=== PATIENT | male | born 1990 | race African-American/Black ===

== ENCOUNTER 2017-06-01 08:12 | Emergency (ER) | payer OTHER ==
--- NOTE | 2017-06-01 08:20 | PDOC ---
History of Present Illness - General Chief Complaint: Pain Stated Complaint: N/V/DIZZINESS/LOWER ABDOMINAL PAIN Time Seen by Provider: 06/01/17 08:19 - History of Present Illness Initial Comments: 06/01/17 12:35 27-year-old male with no significant past medical history presents the emergency department with 3 days of nausea, lightheadedness, and 2 episodes of hematemsis this morning. Pt reports the nausea and lightheadness felt like he was "getting sick." This morning he reports having 2 episodes of maroon blood mixed with saliva in the amount of <1 shot glass with each episode. He has had no further episodes since. Had a normal bowel movement this morning with brown stool. Denies any fevers or chills. Denies any recent alcohol intake. Denies NSAID use. Last smoked marijuana 2 days ago but denies any other drug use. Reports his appetite is down but he has been drinking plenty of water. Denies any weakness or numbness. Reports left upper quadrant, epigastric and right upper quadrant abdominal pain. Denies any recent travel. Has not taken any medications. Denies eating any red food or drinking any red liquids. Reports a similar episode of "vomiting blood "15 years ago that he did not seek care for. Past History - Past Medical History Allergies/Adverse Reactions: Allergies Allergy/AdvReac Type Severity Reaction Status Date / Time No Known Allergies Allergy Verified 06/01/17 08:14 Home Medications: Ambulatory Orders Pantoprazole Sodium [Protonix -] 40 mg PO DAILY #30 tablet.ec 06/01/17 COPD: No Other medical history: pt denies - Suicide/Smoking/Psychosocial Hx Smoking History: Current every day smoker Number of Cigarettes Smoked Daily: 6 Information on smoking cessation initiated: No 'Breaking Loose' booklet given: 01/11/16 Hx Alcohol Use: No Drug/Substance Use Hx: No Substance Use Type: None Review of Systems - Review of Systems Comments:: 06/01/17 12:43 GENERAL/CONSTITUTIONAL: No fever or chills. No weakness. HEAD, EYES, EARS, NOSE AND THROAT: No change in vision. No ear pain or discharge. No sore throat. GASTROINTESTINAL: +nausea, vomiting, no diarrhea or constipation. GENITOURINARY: No dysuria, frequency, or change in urination. CARDIOVASCULAR: No chest pain or shortness of breath. RESPIRATORY: No cough, wheezing, or hemoptysis. MUSCULOSKELETAL: No joint or muscle swelling or pain. No neck or back pain. SKIN: No rash NEUROLOGIC: +lightheadedness. No headache, vertigo, loss of consciousness, or change in strength/sensation. ENDOCRINE: No increased thirst. No abnormal weight change. HEMATOLOGIC/LYMPHATIC: No anemia, easy bleeding, or history of blood clots. ALLERGIC/IMMUNOLOGIC: No hives or skin allergy. *Physical Exam - Physical Exam Comments: 06/01/17 12:44 GENERAL: Awake, alert, and fully oriented, in no acute distress HEAD: No signs of trauma EYES: PERRLA, EOMI, sclera anicteric, conjunctiva clear ENT: Auricles normal inspection, hearing grossly normal, nares patent, oropharynx clear without exudates. dry MM NECK: Normal ROM, supple, no lymphadenopathy, JVD, or masses LUNGS: Breath sounds equal, clear to auscultation bilaterally. No wheezes, and no crackles HEART: Regular rate and rhythm, normal S1 and S2, no murmurs, rubs or gallops ABDOMEN: Soft, +epigastric and LUQ ttp, otherwise nontender, negative palmer sign. normoactive bowel sounds. No guarding, no rebound. No masses. No CVAT. EXTREMITIES: Normal range of motion, no edema. No clubbing or cyanosis. No cords, erythema, or tenderness NEUROLOGICAL: Normal speech, cranial nerves intact, negative pronator drift, 5/ 5 strength in all 4 extremities, normal sensation to light touch in all 4 extremities, normal cerebellar exam, normal gait, normal reflexes and tone SKIN: Warm, Dry, normal turgor, no rashes or lesions noted. ED Treatment Course - LABORATORY CBC & Chemistry Diagram: 06/01/17 12:50 06/01/17 08:55 Medical Decision Making - Medical Decision Making 06/01/17 09:05 27-year-old male presents emergency Department with 3 days of lightheadedness, nausea and today 2 episodes of hematemesis. Denies coughing prior to episode, reports feeling nauseous. Vitals within normal limits. Exam with epigastric and left upper quadrant tenderness to palpation. Unclear etiology of the hematemesis however on subsequent questioning of the patient he states it was probably a lot less than a shot glass. Denies coffee grounds. We will obtain blood work, urinalysis, CT scan, and likely repeat CBC for evaluation. We'll also discuss case with Dr. Plummer (GI). 06/01/17 12:48 Blood work within normal limits. Urinalysis with some blood but no evidence of infection. CT scan with no acute findings. Patient feels better with fluids and requests discharge home. I discussed with patient that we recommend repeating the CBC to make sure he has not lost a lot of blood - pt agrees to stay for this. Regardless of our workup, given the severity of hematemesis and the possibility of a continued GI bleed, I offered admission to the patient for observation but he adamantly refuses and wants to go home and rest. I discussed the case with Dr. Plummer who recommended that if the patient does not want to stay in the hospital that he will reach out to the patient to schedule endoscopy either tomorrow or on Monday. Plan discussed with patient who agrees to f/u. 06/01/17 13:49 CBC completely stable. Vitals stable, pt feels better, no longer lightheaded. REquests DC home. Discussed return precautions with patient such as recurrent bloody vomit, he expresses understanding. I discussed the physical exam findings, ancillary test results and final diagnoses with the patient. I answered all of the patient's questions. The patient was satisfied with the care received and felt comfortable with the discharge plan and treatment plan. The patient will call their primary care physician within 24 hours to arrange follow-up and will return to the Emergency Department with any new, persistent or worsening symptoms. *DC/Admit/Observation/Transfer Diagnosis at time of Disposition: Hematemesis/vomiting blood - Discharge Dispostion Disposition: HOME Condition at time of disposition: Stable Admit: No - Prescriptions Prescriptions: Pantoprazole Sodium [Protonix -] 40 mg PO DAILY #30 tablet.ec - Referrals Referrals: Robbie Plummer MD [Staff Physician] - - Patient Instructions Printed Discharge Instructions: DI for Vomiting -- Adult Additional Instructions: As discussed, Dr. Plummer will contact you with regards to endoscopy scheduling for evaluation of your symptoms. If you not hear from Dr. Plummer, please call his office and schedule a follow-up appointment within one to 2 days. Take the pantoprazole as prescribed daily. Return to the emergency department if you have any new, worsening or concerning symptoms, especially if you have another episode of bloody vomiting. - Post Discharge Activity Forms/Work/School Notes: Back to Work - Attestations Physician Attestion: 06/01/17 13:50 I, Dr. Rosalva Yuen MD, attest that this document has been prepared under my direction and personally reviewed by me in its entirety. I further attest, that it accurately reflects all work, treatment, procedures and medical decision -making performed by me.
[2017-06-01 08:21] VITALS: TEMP 98.5; BMI 36.3
[2017-06-01] MEDS ORDERED: ONDANSETRON 4 MG/2 ML VIAL IVPUSH ONE (08:47)
[2017-06-01] MEDS ORDERED: PANTOPRAZOLE SODIUM 40 MG VIAL IVPUSH ONE (08:47)
[2017-06-01] MEDS ORDERED: SODIUM CHLORIDE 1,000 ML IV STA (08:47)
[2017-06-01] MEDS ORDERED: ONDANSETRON 4 MG/2 ML VIAL ONE (08:50)
[2017-06-01] MEDS ORDERED: PANTOPRAZOLE SODIUM 40 MG VIAL ONE (08:50)
[2017-06-01 09:24] LABS: BASO % 0.6 % (0-2.0); EOS % 5.2 % (0-4.5); HEMATOCRIT 42.2 % (35.4-49); HEMOGLOBIN 14.2 GM/dl (11.7-16.9); MCH 30.8 pg (25.7-33.7); MCHC 33.7 g/dl (32.0-35.9); MEAN CELL VOLUME 91.6 fl (80-96); MEAN PLT VOLUME 9.6 fl (7.5-11.1); MONO % 6.7 % (3.8-10.2); NEUT % 57.5 % (42.8-82.8); PLATELET COUNT 223 K/MM3 (134-434); RDW 13.2 % (11.9-15.9); WHITE BLOOD COUNT 6.6 K/mm3 (4.0-10.8)
[2017-06-01 09:41] LABS: ALBUMIN 3.9 g/dl (3.5-5.0); ALK PHOS 48 U/L (32-92); ANION GAP 5 (8-16); BILIRUBIN,TOTAL 0.5 mg/dl (0.2-1.0); BLOOD UREA NITROGEN 12 mg/dl (7-18); CALCIUM 8.8 mg/dl (8.4-10.2); CHLORIDE 105 mmol/L (98-107); CO2 25 mmol/L (22-28); CREATININE 0.8 mg/dl (0.6-1.3); GLUCOSE,RANDOM 93 mg/dl (74-106); MAGNESIUM 1.8 mg/dL (1.8-2.4); POTASSIUM 4.3 mmol/L (3.5-5.1); SGOT/AST 15 U/L (10-42); SGPT/ALT 17 U/L (10-40); SODIUM 135 mmol/L (136-145); TOT PROT 6.3 g/dl (6.4-8.3)
[2017-06-01 10:13] LABS: ACTIVATED PTT 26.1 SECONDS (24.0-38.9)
[2017-06-01 10:18] LABS: INR 1.18 (0.82-1.09); PROTHROMBIN TIME (PATIENT) 13.2 SEC (10.2-13.0)
[2017-06-01 10:25] LABS: URINE APPEARANCE Clear; URINE BILIRUBIN Negative (NEGATIVE); URINE GLUCOSE (UA) Negative (NEGATIVE); URINE KETONE Negative (NEGATIVE); URINE LEUK ESTERASE Negative (NEGATIVE); URINE NITRITE Negative (NEGATIVE); URINE PROTEIN Negative (NEGATIVE); URINE UROBILINOGEN 0.2 (0.2-1.0)
[2017-06-01 10:43] LABS: URINE BLOOD 1+ (NEGATIVE)
[2017-06-01 10:48] LABS: URINE COLOR YELLOW; URINE RBC 0-3 /hpf (0-3)
[2017-06-01 10:49] LABS: EPI CELLS RARE /HPF; URINE BACTERIA NONE SEEN /hpf (NEGATIVE); URINE WBC 0-3 (0-2)
[2017-06-01 13:25] VITALS: BP 125/80; PULSE 82
[2017-06-01 13:47] LABS: BASO % 0.6 % (0-2.0); EOS % 6.1 % (0-4.5); HEMATOCRIT 41.8 % (35.4-49); HEMOGLOBIN 14.5 GM/dl (11.7-16.9); LYMPH % 30.5 % (8-40); MCH 31.6 pg (25.7-33.7); MCHC 34.7 g/dl (32.0-35.9); MEAN PLT VOLUME 9.8 fl (7.5-11.1); MONO % 4.2 % (3.8-10.2); NEUT % 58.6 % (42.8-82.8); PLATELET COUNT 211 K/MM3 (134-434); RBC 4.59 M/mm3 (4.00-5.60); RDW 13.4 % (11.9-15.9); WHITE BLOOD COUNT 7.5 K/mm3 (4.0-10.8)
[2017-06-01 14:46] LABS: LIPASE 106 U/L (73-393)
--- NOTE | 2017-06-02 09:59 | EKG ---
Test Reason : Blood Pressure : / mmHG Vent. Rate : 061 BPM Atrial Rate : 061 BPM P-R Int : 168 ms QRS Dur : 090 ms QT Int : 420 ms P-R-T Axes : 019 052 019 degrees QTc Int : 422 ms NORMAL SINUS RHYTHM WITH SINUS ARRHYTHMIA WHEN COMPARED WITH ECG OF 07-DEC-2006 08:43, NO SIGNIFICANT CHANGE WAS FOUND Confirmed by NOVA OSWALD MD ([id number]) on 06/02/2017 9:59:43 AM Referred By: JOY CHAVEZ Confirmed By:NOVA OSWALD MD
== END 2017-06-01 14:19 | disposition home or self-care (01) ==
LOC: FER 08:12
PROC: 3E033GC Introduction of Other Therapeutic Substance into Peripheral Vein, Percutaneous Approach (ICD-10-PCS; principal; 2017-06-01)
PROC: 3E0337Z Introduction of Electrolytic and Water Balance Substance into Peripheral Vein, Percutaneous Approach (ICD-10-PCS; 2017-06-01)
DX: K92.0 Hematemesis (principal)
CPT/HCPCS: 36415; 74177-TC; 80053; 81003; 81015; 83605; 83690; 83735; 85025; 85610; 85730; 86850; 86900; 86901; 93005; 99282-25; J7030

== ENCOUNTER 2017-10-04 11:07 | Emergency (ER) | payer OTHER ==
[2017-10-04 11:13] VITALS: BP 114/62; PULSE 68; TEMP 97.8; BMI 37.2
[2017-10-04] MEDS ORDERED: SODIUM CHLORIDE 1,000 ML IV STA (11:40)
[2017-10-04] MEDS ORDERED: KETOROLAC TROMETHAMINE 30 MG/1 ML VIAL IVPUSH ONE (11:40)
--- NOTE | 2017-10-04 11:41 | PDOC ---
History of Present Illness - General Chief Complaint: Pain Stated Complaint: ABD PAIN, LT SIDE PAIN Time Seen by Provider: 10/04/17 11:16 History Source: Patient Exam Limitations: No Limitations - History of Present Illness Initial Comments: 10/04/17 13:42 Patient is a 27-year-old male with no past medical history who presents to the emergency department today with 2 weeks of left flank pain. Patient states that he believed it was just a back strain after working. Patient works in a hotel moving heavy objects. However patient states that over the past 2 weeks the pain has been getting worse. He states that the pain is constant. Denies radiation of the pain. He states that the pain is sharp in nature. Denies fevers , chills, nausea, vomiting, diarrhea, frequency, urgency and hematuria. Past History - Travel Traveled outside of the country in the last 30 days: No Close contact w/someone who was outside of country & ill: No - Past Medical History Allergies/Adverse Reactions: Allergies Allergy/AdvReac Type Severity Reaction Status Date / Time No Known Allergies Allergy Verified 10/04/17 11:09 Home Medications: Ambulatory Orders Cyclobenzaprine HCl [Flexeril -] 10 mg PO HS #10 tablet 10/04/17 Oxycodone HCl/Acetaminophen [Percocet 5-325 mg Tablet] 1 tab PO Q6H #10 tablet MDD 4 10/04/17 Anemia: No Asthma: Yes Cancer: No Cardiac Disorders: No CVA: No COPD: No CHF: No Dementia: No Diabetes: No GI Disorders: No Disorders: No HTN: No Hypercholesterolemia: No Kidney Stones: Yes Liver Disease: No Seizures: No Thyroid Disease: No - Surgical History Abdominal Surgery: No Appendectomy: No Cardiac Surgery: No Cholecystectomy: No Lung Surgery: No Neurologic Surgery: No Orthopedic Surgery: No - Immunization History Immunization Up to Date: Yes - Suicide/Smoking/Psychosocial Hx Smoking History: Current every day smoker Number of Cigarettes Smoked Daily: 5 Information on smoking cessation initiated: No 'Breaking Loose' booklet given: 01/11/16 Hx Alcohol Use: No Drug/Substance Use Hx: No Substance Use Type: None Review of Systems - Review of Systems Able to Perform ROS?: Yes Comments:: 10/04/17 11:38 CONSTITUTIONAL: Absent: fever, chills, diaphoresis, generalized weakness, malaise, loss of appetite HEENT: Absent: rhinorrhea, nasal congestion, throat pain, throat swelling, difficulty swallowing, mouth swelling, ear pain, eye pain, visual Changes CARDIOVASCULAR: Absent: chest pain, loss of consciousness, palpitations, irregular heart rate, peripheral edema RESPIRATORY: Absent: cough, shortness of breath, dyspnea with exertion, orthopnea, wheezing, stridor, hemoptysis GASTROINTESTINAL: Absent: abdominal pain, abdominal distension, nausea, vomiting, diarrhea, constipation, melena, hematochezia GENITOURINARY: Absent: dysuria, frequency, urgency, hesitancy, hematuria, flank pain, genital pain MUSCULOSKELETAL: Absent: myalgia, arthralgia, joint swelling SKIN: Absent: rash, itching, pallor HEMATOLOGIC/IMMUNOLOGIC: Absent: easy bleeding, easy bruising, lymphadenopathy, frequent infections ENDOCRINE: Absent: unexplained weight gain, unexplained weight loss, heat intolerance, cold intolerance NEUROLOGIC: Absent: headache, focal weakness or paresthesias, dizziness, unsteady gait, seizure, mental status changes, bladder or bowel incontinence PSYCHIATRIC: Absent: anxiety, depression, suicidal or homicidal ideation, hallucinations. Is the patient limited Colombian proficient: No *Physical Exam - Vital Signs Last Vital Signs Temp Pulse Resp BP Pulse Ox 97.8 F 68 18 114/62 100 10/04/17 11:09 10/04/17 11:09 10/04/17 11:09 10/04/17 11:09 10/04/17 11:09 - Physical Exam Comments: 10/04/17 11:39 GENERAL: Well developed, well nourished. Awake and alert. No acute distress. HEENT: Normocephalic, atraumatic. PERRLA, EOMI. No conjunctival pallor. Sclera are non- icteric. Moist mucous membranes. Oropharynx is clear. NECK: Supple. Full ROM. No JVD. Carotid pulses 2+ and symmetric, without bruits. No thyromegaly. No lymphadenopathy. CARDIOVASCULAR: Regular rate and rhythm. No murmurs, rubs, or gallops. Distal pulses are 2+ and symmetric. PULMONARY: No evidence of respiratory distress. Lungs clear to auscultation bilaterally. No wheezing, rales or rhonchi. ABDOMINAL: Soft. Non-tender. Non-distended. No rebound or guarding. No organomegaly. Normoactive bowel sounds. MUSCULOSKELETAL Normal range of motion at all joints. No bony deformities or tenderness. No CVA tenderness. EXTREMITIES: No cyanosis. No clubbing. No edema. No calf tenderness. SKIN: Warm and dry. Normal capillary refill. No rashes. No jaundice. NEUROLOGICAL: Alert, awake, appropriate. Cranial nerves 2-12 intact. No deficits to light touch and temperature in face, upper extremities and lower extremities. No motor deficits in the in face, upper extremities and lower extremities. Normoreflexic in the upper and lower extremities. Normal speech. Toes are down- going bilaterally. Gait is normal without ataxia. PSYCHIATRIC: Cooperative. Good eye contact. Appropriate mood and affect. ED Treatment Course - LABORATORY CBC & Chemistry Diagram: 10/04/17 12:08 10/04/17 12:08 *DC/Admit/Observation/Transfer Diagnosis at time of Disposition: Flank pain - Discharge Dispostion Disposition: HOME Condition at time of disposition: Stable Decision to Admit order: No - Referrals Referrals: Leda Reilly MD [Primary Care Provider] - 10/09/17 - Patient Instructions Printed Discharge Instructions: DI for Flank Pain Additional Instructions: Your CAT scan is negative today for kidney stones, diverticulitis. The most likely cause of your pain is due to a muscle strain. Please take Tylenol 600 mg every 6 hours as needed for pain. You may take a Percocet as needed for breakthrough pain. Do not take a Percocet at the same time as the Tylenol. Please all the dosing instructions on the bottle. Please take Flexeril every 8 hours today. Starting tomorrow take the medication at night before bed. Do not drive after taking this medication as it may make you sleepy do not mix with alcohol. Please follow up with her primary care doctor on Monday. Return to the emergency department if her symptoms get worse, give numbness and tingling down the extremities, fevers, chills, nausea, vomiting, or feel any changes in her symptoms. - Post Discharge Activity Forms/Work/School Notes: Back to Work
[2017-10-04] MEDS ORDERED: KETOROLAC TROMETHAMINE 30 MG/1 ML VIAL ONE (11:48)
[2017-10-04 12:04] LABS: URINE APPEARANCE CLEAR; URINE BILIRUBIN NEGATIVE (<2.0 mg/dL); URINE COLOR YELLOW; URINE GLUCOSE (UA) NEGATIVE (NEGATIVE); URINE KETONE TRACE (NEGATIVE); URINE LEUK ESTERASE NEGATIVE (NEGATIVE); URINE NITRITE NEGATIVE (NEGATIVE); URINE PROTEIN NEGATIVE (NEGATIVE); URINE UROBILINOGEN NEGATIVE mg/dL (0.2-1.0)
[2017-10-04 12:14] LABS: BASO % 0.7 % (0-2.0); EOS % 3.4 % (0-4.5); HEMATOCRIT 42.2 % (35.4-49); HEMOGLOBIN 14.2 GM/dL (11.7-16.9); LYMPH % 27.7 % (8-40); MCH 30.8 pg (25.7-33.7); MCHC 33.7 g/dl (32.0-35.9); MEAN CELL VOLUME 91.4 fl (80-96); MEAN PLT VOLUME 9.8 fl (7.5-11.1); MONO % 6.7 % (3.8-10.2); NEUT % 61.5 % (42.8-82.8); PLATELET COUNT 210 K/MM3 (134-434); RBC 4.62 M/mm3 (4.00-5.60); RDW 14.2 % (11.9-15.9); WHITE BLOOD COUNT 7.1 K/mm3 (4.0-10.0)
[2017-10-04 12:36] LABS: ALK PHOS 62 U/L (45-117); ANION GAP 5 (8-16); BILIRUBIN,TOTAL 0.6 mg/dL (0.2-1.0); BLOOD UREA NITROGEN 11 mg/dL (7-18); CALCIUM 8.6 mg/dL (8.5-10.1); CHLORIDE 105 mmol/L (98-107); CO2 30 mmol/L (21-32); CREATININE 1.1 mg/dL (0.7-1.3); GLUCOSE,RANDOM 81 mg/dL (74-106); POTASSIUM 3.5 mmol/L (3.5-5.1); SGOT/AST 13 U/L (15-37); SGPT/ALT 27 U/L (12-78); SODIUM 140 mmol/L (136-145); TOT PROT 6.7 g/dl (6.4-8.2)
== END 2017-10-04 14:23 | disposition home or self-care (01) ==
LOC: JER 11:07
PROC: 3E0333Z Introduction of Anti-inflammatory into Peripheral Vein, Percutaneous Approach (ICD-10-PCS; principal; 2017-10-04)
DX: R10.32 Left lower quadrant pain (principal); Z87.442 Personal history of urinary calculi
CPT/HCPCS: 36415; 74176; 80053; 81003; 85025; 87086; 99283-25; J7030

== ENCOUNTER 2018-07-17 13:15 | Emergency (ER) | payer OTHER ==
[2018-07-17 13:31] VITALS: BMI 38.8
[2018-07-17] MEDS ORDERED: ALBUTEROL SO4 2.5/IPRATROPIUM 0.5 INH SOL 3 ML VIAL.NEB. NEB ONE ×4 (13:38→14:15)
[2018-07-17] MEDS ORDERED: predniSONE 20 MG TABLET (UD) PO ONE (13:38)
[2018-07-17] MEDS ORDERED: ACETAMINOPHEN 325 MG TABLET (FP) PO ONE (13:46)
--- NOTE | 2018-07-17 13:46 | PDOC ---
History of Present Illness - General Chief Complaint: Shortness of Breath Stated Complaint: SOB Time Seen by Provider: 07/17/18 13:35 History Source: Patient Exam Limitations: No Limitations (cough, SOB and fever X 3 days) Past History - Travel Traveled outside of the country in the last 30 days: No Close contact w/someone who was outside of country & ill: No - Past Medical History Allergies/Adverse Reactions: Allergies Allergy/AdvReac Type Severity Reaction Status Date / Time No Known Allergies Allergy Verified 07/17/18 13:28 Home Medications: Ambulatory Orders Albuterol 0.083% Nebulizer Kanwal [Ventolin 0.083% Nebulizer Soln -] 1 neb NEB Q4H 30 Days #1 box 07/17/18 Ibuprofen 800 mg PO ACDIN 7 Days #30 tablet 07/17/18 Ibuprofen 800 mg PO DAILY 07/17/18 Oseltamivir Phosphate [Tamiflu] 75 mg PO BID 5 Days #10 capsule 07/17/18 Anemia: No Asthma: Yes Cancer: No Cardiac Disorders: No CVA: No COPD: No CHF: No Dementia: No Diabetes: No GI Disorders: No Disorders: No HTN: No Hypercholesterolemia: No Kidney Stones: Yes Liver Disease: No Seizures: No Thyroid Disease: No - Surgical History Abdominal Surgery: No Appendectomy: No Cardiac Surgery: No Cholecystectomy: No Lung Surgery: No Neurologic Surgery: No Orthopedic Surgery: No - Immunization History Immunization Up to Date: Yes - Suicide/Smoking/Psychosocial Hx Smoking History: Current every day smoker Have you smoked in the past 12 months: No Number of Cigarettes Smoked Daily: 5 Information on smoking cessation initiated: No 'Breaking Loose' booklet given: 01/11/16 Hx Alcohol Use: No Drug/Substance Use Hx: No Substance Use Type: None Respiratory Specific PMHX - Complaint Specific PMHX Angina: No Review of Systems - Review of Systems Able to Perform ROS?: No Is the patient limited Welsh proficient: No Constitutional: Yes: Fever. No: Chills Respiratory: Yes: Cough, Shortness of Breath, Wheezing, Productive cough. No: SOB at Rest Cardiac (ROS): Yes: Chest Tightness. No: Chest Pain, Irregular Heart Rate Musculoskeletal: Yes: Muscle Pain. No: Back Pain Neurological: No: Headache *Physical Exam - Vital Signs Last Vital Signs Temp Pulse Resp BP Pulse Ox 100.6 F H 118 H 18 95/65 100 07/17/18 13:20 07/17/18 13:20 07/17/18 13:20 07/17/18 13:20 07/17/18 13:20 - Physical Exam General Appearance: Yes: Nourished HEENT: positive: EOMI, OG Neck: positive: Supple Respiratory/Chest: positive: Decreased Breath Sounds Cardiovascular: positive: Regular Rhythm, Regular Rate, S1, S2 Gastrointestinal/Abdominal: positive: Normal Bowel Sounds, Soft Extremity: positive: Normal Capillary Refill, Normal Inspection Integumentary: positive: Normal Color Neurologic: positive: petroleum transport driver II-XII NML intact, Fully Oriented, Normal Response, Motor Strength / ED Treatment Course - RADIOLOGY Radiology Studies Ordered: Category Date Time Status CHEST PA & LAT [RAD] Stat Radiology 07/17/18 13:36 Ordered Medical Decision Making - Medical Decision Making 28 years old male with history of asthma denies any prior intubation or hospitalization. Patient presents with productive cough fever body aches X 3 days, + active smoker reports he's been using his inhaler nebulizer for the past 3 days with no relief On exam he does have some mild respiratory distress he has diminished breath sounds in bilateral lung vitale he has a low-grade fever Chest x-ray obtained to rule out pneumonia duo nebs and prednisone disposition pending pt 07/17/18 14:11 CXR no PNA lungs better air movement *DC/Admit/Observation/Transfer Diagnosis at time of Disposition: Influenza B - Discharge Dispostion Disposition: HOME - Prescriptions Prescriptions: Albuterol 0.083% Nebulizer Kanwal [Ventolin 0.083% Nebulizer Soln -] 1 neb NEB Q4H 30 Days #1 box Ibuprofen 800 mg PO ACDIN 7 Days #30 tablet Oseltamivir Phosphate [Tamiflu] 75 mg PO BID 5 Days #10 capsule - Referrals - Patient Instructions Printed Discharge Instructions: Influenza Additional Instructions: You were tested positive for influenza B Please take medication as prescribed hydration and rest follow up with your primary care doctor return to the ER if worsening symptoms occurs. - Post Discharge Activity
[2018-07-17] MEDS ORDERED: predniSONE 20 MG TABLET (UD) ONE (13:47)
[2018-07-17] MEDS ORDERED: ACETAMINOPHEN 325 MG TABLET (FP) ONE (13:51)
[2018-07-17 15:06] VITALS: BP 108/62; PULSE 119; TEMP 99.5
== END 2018-07-17 15:37 | disposition home or self-care (01) ==
LOC: JERFT 13:15
PROC: 3E0F7GC Introduction of Other Therapeutic Substance into Respiratory Tract, Via Natural or Artificial Opening (ICD-10-PCS; principal; 2018-07-17)
PROC: 3E0F7GC Introduction of Other Therapeutic Substance into Respiratory Tract, Via Natural or Artificial Opening (ICD-10-PCS; 2018-07-17)
DX: J10.1 Influenza due to other identified influenza virus with other respiratory manifestations (principal)
CPT/HCPCS: 71046-TC-FY; 87804; 94640; 99281-25

== ENCOUNTER 2021-07-03 12:05 | Emergency (ER) | payer OTHER ==
[2021-07-03 12:19] VITALS: BP 129/74; PULSE 73; TEMP 98.3; BMI 33.6
[2021-07-03] MEDS ORDERED: KETOROLAC TROMETHAMINE 30 MG/1 ML VIAL IVPUSH ONE (12:57)
[2021-07-03 13:02] LABS: HEMATOCRIT 42.1 % (35.4-49); HEMOGLOBIN 14.9 G/dL (11.7-16.9); MCH 32.4 pg (25.7-33.7); MCHC 35.5 g/dl (32.0-35.9); MEAN CELL VOLUME 91.3 fl (80-96); MEAN PLT VOLUME 9.4 fl (7.5-11.1); PLATELET COUNT 230.2 10^3/uL (134-434); RBC 4.61 10^6/uL (4.00-5.60); RDW 15.2 % (11.9-15.9); WHITE BLOOD COUNT 7.4 10^3/uL (4.0-10.8)
[2021-07-03] MEDS ORDERED: KETOROLAC TROMETHAMINE 30 MG/1 ML VIAL ONE (13:02)
[2021-07-03 13:11] LABS: ALBUMIN 4.1 g/dl (3.4-5.0); BILIRUBIN,TOTAL 0.8 mg/dl (0.2-1); CALCIUM 8.9 mg/dl (8.5-10); CREATININE 1.1 mg/dl (0.55-1.3); TOT PROT 6.8 g/dl (6.4-8.2)
[2021-07-03] MEDS ORDERED: ACETAMINOPHEN 1000 MG/100 ML BAG IVPB ONE (15:24)
[2021-07-03] MEDS ORDERED: ACETAMINOPHEN INJECTION 100 ML IVPB ONE (15:25)
== END 2021-07-03 16:20 | disposition home or self-care (01) ==
LOC: FER 12:05
PROC: 3E0333Z Introduction of Anti-inflammatory into Peripheral Vein, Percutaneous Approach (ICD-10-PCS; principal; 2021-07-03)
PROC: 3E0333Z Introduction of Anti-inflammatory into Peripheral Vein, Percutaneous Approach (ICD-10-PCS; 2021-07-03)
DX: K40.90 Unilateral inguinal hernia, without obstruction or gangrene, not specified as recurrent (principal)
CPT/HCPCS: 36415; 73502-TC-LT-FY; 74177-TC; 80053; 81003; 85025; 99285-25; Q9967

== ENCOUNTER 2021-08-06 04:29 | Day surgery (SDC) | payer OTHER ==
[2021-08-02 10:57] VITALS: BMI 33.6
[2021-08-06] MEDS ORDERED: ONDANSETRON 4 MG/2 ML VIAL IVPUSH PRN (08:51)
[2021-08-06] MEDS ORDERED: oxyCODONE HCL 5 MG TABLET PO PRN (08:51)
[2021-08-06] MEDS ORDERED: LACTATED RINGERS SOLUTION 1,000 ML IV SCH (09:00)
[2021-08-06] MEDS ORDERED: DEXAMETHASONE SOD PHOSPHATE 10 MG/1 ML VIAL ONE (09:07)
[2021-08-06] MEDS ORDERED: BUPIVACAINE HCL/PF 0.5% (5MG/ML) 10 ML VIAL ONE (09:08)
[2021-08-06] MEDS ORDERED: MIDAZOLAM HCL 2 MG/2 ML SINGLE DOSE VIAL ONE ×3 (09:17)
[2021-08-06] MEDS ORDERED: ROCURONIUM BROMIDE 50 MG/5 ML SYRINGE ONE ×2 (09:17→10:08)
[2021-08-06] MEDS ORDERED: PROPOFOL 20 ML ONE (09:17)
[2021-08-06] MEDS ORDERED: FENTANYL CITRATE/PF 50 MCG/ML VIAL ONE ×4 (09:17→12:38)
[2021-08-06] MEDS ORDERED: LIDOCAINE HCL/PF 2% SDV 5ML VIAL ONE (09:17)
[2021-08-06] MEDS ORDERED: DEXAMETHASONE SOD PHOSPHATE 4 MG/1 ML VIAL ONE (09:17)
[2021-08-06] MEDS ORDERED: ceFAZolin SODIUM 1 GM VIAL ONE (09:42)
[2021-08-06] MEDS ORDERED: ceFAZolin SODIUM 1 GM VIAL IVPB ONE (09:45)
[2021-08-06] MEDS ORDERED: HYDROmorphone HCl 2 MG/ML VIAL ONE (10:16)
[2021-08-06] MEDS ORDERED: GLYCOPYRROLATE 0.2 MG/1 ML VIAL ONE (11:41)
[2021-08-06] MEDS ORDERED: METOPROLOL TARTRATE 5 MG/5 ML VIAL ONE (11:41)
[2021-08-06] MEDS ORDERED: NEOSTIGMINE METHYLSULFATE 0.5 MG/ML - 10 ML MDV ONE (11:42)
[2021-08-06] MEDS ORDERED: BACITRACIN 15 GM TUBE TOPICAL OINTMENT ONE (11:43)
[2021-08-06] MEDS ORDERED: oxyCODONE HCL 5 MG TABLET ONE (13:08)
[2021-08-06 14:21] VITALS: BP 121/84; PULSE 64; TEMP 98
== END 2021-08-06 14:05 | disposition home or self-care (01) ==
LOC: JASU-SURG 04:29
PROVIDERS: ATTEND Surgery
PROC: 8E0W4CZ Robotic Assisted Procedure of Trunk Region, Percutaneous Endoscopic Approach (ICD-10-PCS; 2021-08-06)
PROC: 0VB Male Reproductive System, Excision (ICD-10-PCS; 2021-08-06)
PROC: 0YU64JZ Supplement Left Inguinal Region with Synthetic Substitute, Percutaneous Endoscopic Approach (ICD-10-PCS; principal; 2021-08-06 09:30)
DX: K40.90 Unilateral inguinal hernia, without obstruction or gangrene, not specified as recurrent (principal); D17.6 Benign lipomatous neoplasm of spermatic cord
CPT/HCPCS: 49650; 55559; S2900; 88304-TC; 94760; J1100

== ENCOUNTER 2023-10-02 06:05 | Day surgery (SDC) | payer OTHER ==
[2023-09-27 14:35] VITALS: BMI 35.7
[2023-10-02] MEDS ORDERED: ONDANSETRON 4 MG/2 ML VIAL ONE (11:05)
[2023-10-02 11:32] VITALS: BP 120/84; PULSE 65
[2023-10-02 11:33] VITALS: TEMP 97.1
[2023-10-02 11:50] VITALS: RESP 72
== END 2023-10-02 11:48 | disposition home or self-care (01) ==
LOC: JASU-ENDO 06:05
PROVIDERS: ATTEND Internal Medicine Gastroenterology
PROC: 0DB98ZX Excision of Duodenum, Via Natural or Artificial Opening Endoscopic, Diagnostic (ICD-10-PCS; 2023-10-02)
PROC: 0DB78ZX Excision of Stomach, Pylorus, Via Natural or Artificial Opening Endoscopic, Diagnostic (ICD-10-PCS; 2023-10-02)
PROC: 0DB68ZX Excision of Stomach, Via Natural or Artificial Opening Endoscopic, Diagnostic (ICD-10-PCS; 2023-10-02)
PROC: 0DJD8ZZ Inspection of Lower Intestinal Tract, Via Natural or Artificial Opening Endoscopic (ICD-10-PCS; principal; 2023-10-02 09:30)
DX: K57.30 Diverticulosis of large intestine without perforation or abscess without bleeding (principal); K64.8 Other hemorrhoids; K29.50 Unspecified chronic gastritis without bleeding
CPT/HCPCS: 88305-TC; 88342-TC